=== PATIENT | female | born 1940 | race Caucasian/White ===

== ENCOUNTER 2020-05-29 12:01 | Emergency (ER) | payer OTHER ==
[~2020-05-29] VITALS: Ht 162.6 cm; Wt 70.3 kg
[~2020-05-29 12:01] MED LIST: ALPR1TER PO; ATEN25TA2 PO; CITA-70 PO; COU1 PO; FERR325T62 PO; FESO8TER PO; LEVO0.1212 PO; LIP80 PO; METROTREXATE PO; OMEP-283 PO; PRED2.5T2 PO; VITA2000 PO; [UNRECOGNIZED DRUG - CODE] PO
--- NOTE | 2020-05-29 12:01 | NUR ---
PT PLACED IN BED 11 BY EMS.
[2020-05-29 12:11] VITALS: BP 110/54
--- NOTE | 2020-05-29 12:11 | NUR ---
PT BIBA FROM HOME FOR RIGHT HIP PAIN RADIATING TO RT LEG AND BETTY LEG PAIN WITH EDEMA CHRONICALLY. PT STATES SHE FELL AND LANDED ON HER RIGHT SIDE ON 04/27/2020, SHE ALSO FELL [address] TO HER DR'S APPOINTMENT. SEVERE DEFORMITY ON THE LEFT ANKLE WITH EDEMA AND BRUISING NOTICED. +3 NON-PITTING EDEMA ON LEFT LOWER LEG AND +2 NON-PITTING EDEMA ON THE RIGHT LOWER LEG. DENIES FEVER, COUGH, SOB, CHEST PAIN, N/V/D, OR SICK CONTACT. HR EVEN AND REGULAR; PT DENIES ANY FEVER, CP, SOB, OR COUGH AT THIS TIME; PATIENT STATES PAIN OF 10/10 AT THIS TIME; VSS; PATIENT POSITIONED FOR COMFORT; HOB ELEVATED; BEDRAILS UP X2; BED DOWN. ER MD MADE AWARE OF PT STATUS. PMH: HTN, HYPOTHYROIDISM, DVT (LEFT LEG), PARKINSON'S DISEASE, RA, GERD
[2020-05-29] MEDS ORDERED: fentaNYL citrate 0.05 MG/ML VIAL IVP ONE (12:55)
[2020-05-29 13:22] LABS: BASOPHILS % (AUTO) 0.2 % (0.0-2.0); EOSINOPHILS # (AUTO) 0.1 K/uL (0-0.4); EOSINOPHILS % (AUTO) 2.5 % (0.0-4.0); HEMATOCRIT 31.2 % (36-48); HEMOGLOBIN 10.7 g/dL (12.0-16.0); LYMPHOCYTES # (AUTO) 1.2 K/uL (2.5-16.5); LYMPHOCYTES % (AUTO) 20.5 % (20.5-51.1); MEAN CORPUSCULAR HEMOGLOBIN 34 pg (27-31); MEAN CORPUSCULAR HGB CONC 34 g/dL (33-37); MEAN CORPUSCULAR VOLUME 98.1 fL (80-94); MONOCYTES # (AUTO) 0.7 K/uL (0.8-1.0); NEUTROPHILS # (AUTO) 3.7 K/uL (1.8-7.7); NEUTROPHILS % (AUTO) 64.8 % (42.2-75.2); PLATELET COUNT (AUTO) 145 K/uL (140-450); RED BLOOD CELL COUNT(AUTO) 3.18 MIL/uL (4.20-5.40); RED CELL DISTRIBUTION WIDTH 14.2 % (11.6-13.7); WHITE BLOOD COUNT (AUTO) 5.7 K/uL (4.8-10.8)
--- NOTE | 2020-05-29 13:23 | NUR ---
PT TAKEN TO CT VIA [facility].
[2020-05-29 13:37] LABS: ANION GAP 11.6 (8-16); CARBON DIOXIDE 27.4 mmol/L (21-32); CHLORIDE 106 mmol/L (98-107); GLUCOSE 102 mg/dL (74-106); SODIUM SERUM 141 mmol/L (136-145); UREA NITROGEN, BLOOD 18 mg/dL (7-18)
--- NOTE | 2020-05-29 13:43 | NUR ---
PT HAS BEEN BROUGHT BACK FROM CT SCAN AND XRAY VIA [facility]. PLACE PT ON MONITOR.
[2020-05-29 14:00] LABS: PROTHROMBIN TIME 10.5 secs (10.8-13.4)
[2020-05-29 15:05] VITALS: BP 111/60
--- NOTE | 2020-05-29 15:05 | NUR ---
Patient discharged with v/s stable. Written and verbal after care instructions given and explained. Patient alert, oriented and verbalized understanding of instructions. WC assisted to lobby. All questions addressed prior to discharge. ID band removed. Patient advised to follow up with PMD. Rx of Tylenol given. Patient educated on indication of medication including possible reaction and side effects. Opportunity to ask questions provided and answered.
== END 2020-05-29 15:05 | disposition home or self-care (01) ==
LOC: MED 12:01
DX: M25.551 Pain in right hip (principal); K21.9 Gastro-esophageal reflux disease without esophagitis; I10 Essential (primary) hypertension; E03.9 Hypothyroidism, unspecified; Z79.899 Other long term (current) drug therapy; Z88.0 Allergy status to penicillin; Z88.5 Allergy status to narcotic agent; Z88.8 Allergy status to other drugs, medicaments and biological substances
CPT/HCPCS: 36415; 72192; 73552; 80048; 85025; 85610; 85730; 96374; 99285; J3010